=== PATIENT | female | born 1960 | race Caucasian/White ===

== ENCOUNTER 2017-05-29 11:16 | Inpatient (IN) | payer BC ==
[~2017-05-29] VITALS: Ht 170.2 cm; Wt 49.0 kg
--- NOTE | ~2017-05-29 | DS ---
Unit #: [id number] #: [id number] Patient: EVELYN MCBRIDE [id number] [facility] [address] [place] [address] [id number] MR#: [id number] NAME: EVELYN MCBRIDE ROOM: 76 Age: 57 Sex: F Admission Date: 05/29/2017 : 1960 Discharge Date: 05/31/2017 Attending Physician: Bola eJnnings M.D. Primary Care Physician: Generic Doctor Not In System DISCHARGE SUMMARY REASON FOR ADMISSION Alcohol detox. DIAGNOSTIC STUDIES LABORATORY RESULTS: Urine drug screen positive for benzodiazepine and marijuana. HOSPITAL COURSE The patient was admitted to inpatient unit on 05/29/2017 and discharged on 05/31/2017. The patient was treated on the inpatient unit with psychoeducation, psychotherapy, and structured milieu, detox protocol, and detox monitoring. The patient was responsive to treatment. The patient wanted to leave and currently denied any suicidal or homicidal ideation. Denied any psychotic symptom. Subsequently, the patient was discharged with a plan to follow up in outpatient program, CD-IOP program. DISCHARGE MEDICATIONS None. DISCHARGE DIAGNOSES Psychiatric: Alcohol use disorder, severe, F10.20; cannabis abuse, moderate to severe, F12.20; mood disorder, not otherwise specified, F32.9. Secondary diagnosis: Deferred. Medical diagnosis: None. Stressors: Psychosocial stressors. DISCHARGE INSTRUCTIONS The patient to follow up in CD-IOP program upon discharge. PROGNOSIS Guarded. DIET AND ACTIVITY As tolerated. Dictated by... Bola Jennings M.D. [facility] [place] [place] Unit #: [id number] #: [id number] Patient: EVELYN MCBRIDE TD: 05/31/2017 15:39 JOB #: [id number] DISCHARGE SUMMARY Page 1 of 1 X Bola Jennings MD X DISCHARGE SUMMARY
--- NOTE | ~2017-05-29 | PN ---
Unit #: [id number] #: [id number] Patient: EVELYN MCBRIDE [id number] [facility] [address] [place] [address] [id number] MR#: [id number] NAME: EVELYN MCBRIDE ROOM: P176 Age: 57 Sex: F Admission Date: 05/29/2017 : 1960 Attending Physician: Bola Jennings M.D. Admitting Physician: Bola Jennings M.D. Primary Care Physician: Generic Doctor Not In System [facility] PROGRESS NOTES DATE OF SERVICE: 05/30/2017 DISCUSSION Ms. Reyna is a 57-year-old female, seen on 05/30/2017. The patient interviewed, chart reviewed, and obtained information from nursing staff. The patient reports that she is feeling better. The patient was admitted in an intoxicated state for detox. The patient compliant and cooperative. Mood; sad, dysphoric, withdrawn, isolative, guarded. REVIEW OF SYSTEMS Complete review of systems unremarkable. MENTAL STATUS EXAMINATION The patient dressed casually. Attention span and concentration, fair. Oriented in time, place, and person. Vital signs; temperature 98.6, heart rate 87, and blood pressure 130/89. Speech, monotone. Thought process, concrete. The patient denied any thoughts of harming self or others. Recent and remote memory, poor. Insight and judgment, poor. DIAGNOSES Alcohol use disorder, severe and mood disorder, not otherwise specified. ASSESSMENT AND PLAN Advised to continue with current medication and therapeutic protocol. If needed, consider further adjustment of medication. Dictated by... Roxie Christianson/jocelyn TD: 05/30/2017 18:45 JOB #: [id number] Unit #: [id number] #: [id number] Patient: EVELYN MCBRIDE PROGRESS NOTES Page 1 of 1 X Bola Jennings MD PROGRESS NOTE
--- NOTE | ~2017-05-29 | PA ---
Unit #: [id number] #: [id number] Patient: EVELYN MCBRIDE [id number] [place] [address] [id number] MR#: [id number] NAME: EVELYN MCBRIDE ROOM: P176 Age: 57 Sex: F Admission Date: 05/29/2017 : 1960 Date of Assessment: Attending Physician: Bola Jennings M.D. Admitting Physician: Bola Jennings M.D. Primary Care Physician: Generic Doctor Not In System PSYCHIATRIC ASSESSMENT INFORMANTS The patient reliability, fair informant and chart reliability, good. CHIEF COMPLAINT Alcohol abuse. HISTORY OF PRESENT ILLNESS Ms. Reyna is a 57-year-old female, presented from [facility] due to extreme tremulousness and stomach cramping. The patient reported she had a shot of vodka at 7 a.m. to stop tremors. The patient's CIWA score was 15. The patient's blood pressure was 155/96 and temperature 98.6. The patient reports that she lives with her , lost some of her family members recently. Reports good support system. The patient reported sleeping 7 hours and needing detox. The patient reported drinking 1 to 1-1/2 pints of vodka daily. The patient reported no use of any street drugs. Currently, reporting withdrawal symptoms. The patient reported tobacco use, age of onset 14; alcohol, age of onset 20; and marijuana, age of onset 14. The patient reported longest period of sobriety 35 years, last period of sobriety 5 years. The patient reported a history of blackouts. Denied any history of HIV, hepatitis, or IV drug use. Currently, having tremulousness, elevated pulse, nausea, sweating, anxiety, and agitation. Needing inpatient admission at this time for psychiatric stabilization. PAST PSYCHIATRIC HISTORY Remarkable for history of previous outpatient treatment, details unknown at this time. FAMILY HISTORY AND SOCIAL HISTORY The patient lives with her , good support system. No history of abuse. No known history of any psychiatric illness known in the family. MEDICAL HISTORY Unremarkable for any chronic medical condition. Musculoskeletal; muscle strength and tone, no atrophy or abnormal movement. Gait normal. MEDICATION HISTORY None. ALLERGIES No known drug allergies. SUBSTANCE ABUSE HISTORY Please see above. Unit #: [id number] #: [id number] Patient: EVELYN MCBRIDE REVIEW OF SYSTEMS HEENT: Eyes, clear. Ears, nose, mouth, and throat; clear. CARDIOVASCULAR: Unremarkable. RESPIRATORY: Unremarkable. GI: Unremarkable. : Unremarkable, except as mentioned above. SKIN: Unremarkable. LYMPH NODE: Unremarkable. NEUROLOGIC: Unremarkable. ENDOCRINE: Unremarkable. HEMATOLOGIC: Unremarkable. ALLERGIC/IMMUNOLOGIC: Unremarkable. MUSCULOSKELETAL: Muscle strength and tone, no atrophy or abnormal movement. Gait abnormal, please see above for detail. MENTAL STATUS EXAMINATION CONSTITUTIONAL: Measurement of vital signs; temperature 98.2, heart rate 92, respiratory rate 16, and blood pressure 132/58. Height 5 feet 7 inches and weight 108 pounds. GENERAL APPEARANCE: The patient dressed casually. No facial deformity noted. MUSCULOSKELETAL: Please see above. PSYCHIATRIC EXAMINATION Description of speech; regular rate and slow in volume and rate. Description of thought process, circumstantial. Description of association, intact. Description of abnormal psychotic thinking; the patient denied any hallucinations or delusions, but mood lability. Denied any suicidal or homicidal ideation. Description of the patient's judgment: Concerning everyday activity, poor. Social situation, poor. Concerning psychiatric condition, poor. Complete mental status examination; oriented in time, place, and person. Recent and remote memory, fair. Attention span and concentration, fair. Language, fair. Fund of knowledge, fair. Vocabulary, intact. Mood and affect, labile. Insight and judgment, fair to poor. ASSETS AND LIABILITIES Assets, the patient is articulate and able to take care of her ADL. Liability, history of substance abuse and depression. ADMITTING DIAGNOSES Psychiatric: Alcohol use disorder, severe, F10.20 and mood disorder, not otherwise specified, F32.9. Secondary diagnosis: Deferred. Medical diagnosis: None. Stressors: Psychosocial stressor. PSYCHIATRIC PLAN AND TREATMENT GOAL AND DISCHARGE PLAN 1. Advised to admit the patient on the inpatient unit. Provide safe, supportive, and structured environment. 2. Ordered labs; CBC, CMP, UA, and UDS. 3. Detox protocol and detox monitoring. 4. If needed, consider medication for depression. Unit #: [id number] #: [id number] Patient: EVELYN MCBRIDE 5. The patient to attend group therapy, individual therapy, and chemical dependency group. TREATMENT GOAL To attain euthymic mood, gain insight into her problem, and learn coping skills. DISCHARGE PLAN Plan to stabilize the patient and consider followup in outpatient program. ESTIMATED LENGTH OF STAY 3 to 5 days. Dictated by... Roxie Christianson/jocelyn TD: 05/29/2017 15:51 JOB #: [id number] PSYCHIATRIC ASSESSMENT Page 1 of 1 X Bola Jennings MD X PSYCHIATRIC ASSESSMENT
--- NOTE | ~2017-05-29 | HP ---
Unit #: [id number] #: [id number] Patient: EVELYN MCBRIDE [id number] [place] [address] [id number] MR#: [id number] NAME: EVELYN MCBRIDE ROOM: P176 Age: 57 Sex: F Admission Date: 05/29/2017 : 1960 Attending Physician: Bola Jennings M.D. Admitting Physician: Bola Jennings M.D. Primary Care Physician: Generic Doctor Not In System HISTORY AND PHYSICAL HISTORY OF PRESENT ILLNESS Evelyn is a 57-year-old female admitted on 05/29/2017 to [facility] for detox from alcohol. PAST MEDICAL HISTORY None. PAST SURGICAL HISTORY None. SOCIAL HISTORY Smokes one pack of cigarettes daily. Reports binge alcohol use and occasional marijuana use. She is currently and living with her . FAMILY HISTORY Noncontributory. REVIEW OF SYSTEMS CONSTITUTIONAL: No fever or chills. HEENT: Denies any sore throat, ear pain or runny nose. CARDIOVASCULAR: Denies chest pain, irregular heart rhythm or palpitations. CHEST: Denies shortness of breath or cough. No hemoptysis. GASTROINTESTINAL: Denies nausea, vomiting, diarrhea or chronic constipation. ENDOCRINE: Denies history of increased thirst or urination. No recent significant weight loss or gain. GENITOURINARY: Denies dysuria, frequency, or hematuria. SKIN: Denies any rashes. HEMATOLOGIC: Denies history of increased bleeding or bruising. MUSCULOSKELETAL: Denies any hot, swollen joints. No generalized muscle pain. NEUROLOGIC: Denies problems with vision or speech. No frequent, severe headaches. No numbness, tingling or weakness in any extremities. Denies loss of bladder or bowel control. CURRENT MEDICATIONS None. ALLERGIES None Unit #: [id number] #: [id number] Patient: EVELYN MCBRIDE PHYSICAL EXAMINATION GENERAL: Alert, oriented, in no acute distress. VITAL SIGNS: Blood pressure 132/58, heart rate 98, respirations 18, temperature 98.1. HEIGHT: 5 foot 7 inches. WEIGHT: 108 pounds. SKIN: Warm and dry without rash or lesion. HEENT: Normocephalic. TMs not viewed. Oral and nasal passages clear. Conjunctivae clear. PERRLA. EOMs intact. NECK: Supple without lymphadenopathy or thyromegaly. HEART: Regular rate and rhythm without murmur. LUNGS: Clear. ABDOMEN: Soft, nontender, without masses or hepatosplenomegaly. : Not done. EXTREMITIES: No evidence of cyanosis, clubbing or edema. Moves all without focal deficit. NEUROLOGICAL: Grossly within normal limits. Cranial Nerves: II: Visual landeros are intact. III, IV AND : Extraocular movements are intact. Pupils are equal, round and reactive to light. V: Facial sensation is grossly normal. VII: Facial movements and expression are normal. VIII: Auditory acuity grossly intact. IX, X: Uvula is midline. Phonation is normal. XI: Patient shrugs shoulders and turns head normally. XII: Tongue protrudes in the midline. Sensory and Motor Function: Sensory and motor sensation is grossly normal. Motor: moves all extremities well. Coordination: Gait is normal. Deep Tendon Reflexes: Intact. IMPRESSION 1. Psychiatric admission. RECOMMENDATIONS Psychiatric, per psychiatrist. MEDICAL: I see no contraindications to participating in facility's activities. MEDICAL PROGNOSIS Good. MEDICAL CONDITION Stable. Dictated by... Preeti Contreras TD: 05/30/2017 20:59 JOB #: [id number] Unit #: [id number] #: [id number] Patient: EVELYN MCBRIDE HISTORY AND PHYSICAL Page 1 of 1 X FATEMEH HOPSON APRN X HISTORY AND PHYSICAL
[2017-05-30 09:57] LABS: BASOPHIL# 0.1 X10e3 (0-0.3); EOSINOPHIL# 0.2 X10e3 (0-0.7); HEMATOCRIT 39.1 % (35.0-45.0); HEMOGLOBIN 13.3 gm/dL (12.0-16.0); LYMPHOCYTE# 1.9 X10e3 (1.0-3.5); LYMPHOCYTE% 37.2 % (17.0-45.0); MEAN CELL VOLUME 103.9 FL (83-96); MEAN CORPUSCULAR HEMOGLOBIN 35.3 PG (28-34); MEAN CORPUSCULAR HGB CONC 33.9 g/dL (30-36); MEAN PLATELET VOLUME 8.4 FL (6.5-11.5); MONOCYTE# 0.4 X10e3 (0-1.0); MONOCYTE% 8.2 % (3.0-12.0); NEUTROPHIL# 2.6 X10e3 (1.5-7.1); NEUTROPHIL% 50.6 % (40-75); PLATELET COUNT 209 X10e3 (140-420); RED BLOOD COUNT 3.77 X10e (3.90-5.30); RED CELL DISTRIBUTION WIDTH 14.7 % (11.0-15.5); WHITE BLOOD COUNT 5.2 X10e3 (4.0-10.5)
[2017-05-30 10:01] LABS: ALBUMIN SERUM 3.9 g/dL (3.5-5.0); BILIRUBIN,TOTAL 1.5 mg/dL (0.2-2.0); CALCIUM SERUM 9.6 mg/dL (8.4-10.2); CREATININE SERUM 0.5 mg/dL (0.6-1.4); POTASSIUM 4.6 mmol/L (3.5-5.1); PROTEIN TOTAL SERUM 6.9 g/dL (6.0-8.3)
[2017-05-30 10:03] LABS: DIFF IND NO
[2017-05-30 13:00] LABS: URINE APPEARANCE CLOUDY; URINE BILIRUBIN NEG (NEG); URINE BLOOD NEG (NEG); URINE COLOR DK YELLOW; URINE GLUCOSE NEG (NEG); URINE KETONE NEG (NEG); URINE LEUKOCYTE ESTERASE TRACE (NEG); URINE NITRATE NEG (NEG); URINE PROTEIN NEG (NEG)
[2017-05-30 13:02] LABS: URINE BACTERIA AUWI 1+ (NEGATIVE); URINE SQUAMOUS EPITHELIAL CELL MOD /[HPF]
[2017-05-30 13:09] LABS: AMPHETAMINE NEG (NEG); BARBITURATES NEG (NEG); BENZODIAZEPINES POS (NEG); COCAINE NEG (NEG); MARIJUANA POS (NEG); OPIATES NEG (NEG); TRICYCLIC ANTIDEPRESSANTS NEG (NEG); U METHADONE NEG (NEG)
== END 2017-05-31 10:30 | disposition home or self-care (01) | DRG 897 ==
LOC: P1E 12:48
PROVIDERS: Psychiatry & Neurology Psychiatry
PROC: HZ2ZZZZ Detoxification Services for Substance Abuse Treatment (ICD-10-PCS; principal; 2017-05-29)
DX: F10.20 Alcohol dependence, uncomplicated (principal); F39 Unspecified mood [affective] disorder; F17.210 Nicotine dependence, cigarettes, uncomplicated
CPT/HCPCS: 80053; 80307; 81003; 85025; 86592